=== PATIENT | female | born 1995 | race Caucasian/White ===

== ENCOUNTER 2020-01-05 20:39 | Emergency (ER) | payer OTHER ==
[~2020-01-05] VITALS: Ht 167.6 cm; Wt 54.0 kg
[2020-01-05 21:56] LABS: BASOPHILS % (AUTO) 0 % (0-1); EOSINOPHILS % (AUTO) 2 % (1-7); LYMPHOCYTES % (AUTO) 37 % (22-44); MEAN CORPUSCULAR HEMOGLOBIN 29.8 pg (27.0-34.8); MEAN CORPUSCULAR HGB CONC 33.1 g/dL (32.4-35.8); MEAN PLATELET VOLUME 8.6 fL (7.4-10.4); MONOCYTES % (AUTO) 8 % (2-9); NEUTROPHILS % (AUTO) 53 % (42-75); PLATELET COUNT 288 x10^3/uL (130-400); RED BLOOD COUNT 4.14 x10^6/uL (3.82-5.3); RED CELL DISTRIBUTION WIDTH 13.1 % (9.6-15.2)
[2020-01-05 22:04] LABS: ALBUMIN 3.9 g/dL (3.4-5.0); ANION GAP 5 mmol/L (5-15); CALCIUM 8.6 mg/dL (8.5-10.1); CHLORIDE 110 mmol/L (98-107); CREATININE 0.73 mg/dL (0.55-1.02); MD NO
--- NOTE | 2020-01-05 22:26 | NUR ---
PT TO IMAGING.
[2020-01-05 22:49] VITALS: BP 128/87
[2020-01-05 23:05] LABS: MICROSCOPIC INDICATED
--- NOTE | 2020-01-05 23:15 | NUR ---
PT REPORTED TO THIS RN A COMPLAINT REGAURDING [email or web address] TECH. 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 ZEFERINO AT BEDSIDE TO TALK WITH PT.
== END 2020-01-05 23:59 | disposition home or self-care (01) ==
LOC: ED 21:26
DX: R10.30 Lower abdominal pain, unspecified (principal); R11.0 Nausea; R30.0 Dysuria
CPT/HCPCS: 36415; 76830; 80048; 81001; 82040; 84703; 85025; 99284